=== PATIENT | male | born 1955 | race Caucasian/White ===

== ENCOUNTER 2025-04-02 12:46 | Emergency (ER) | payer OTHER, BC ==
[~2025-04-02] VITALS: Ht 177.8 cm; Wt 105.2 kg
[~2025-04-02 12:46] MED LIST: ACET-2006 PO; APIX5TAB3 PO; ASPI-1265 PO; ATOR-2 PO; CARB15DR58 EACHEYE; CYCL-394 PO; DULO30CA52 PO; EZET10TA6 PO; FERR-39 PO; HYDR-3972 PO; LISI5TAB22 PO; OMEP40CA21 PO; PREG50CA PO
[2025-04-02 13:10] VITALS: BP 137/80; PULSE 98; RESP 18; TEMP 97.3; O2SAT 98
[2025-04-02 13:35] LABS: MEAN PLATELET VOLUME 8.3 FL (7.4-10.4); RED CELL DISTRIBUTION WIDTH 17.6 % (11.5-14.5)
[2025-04-02 14:17] LABS: CREATININE 1.87 MG/DL (0.60-1.10); TOTAL CARBON DIOXIDE 29.7 MMOL/L (24-32); eCRCL 38 ML/MIN; eGFR 36 ML/MIN
== END 2025-04-02 19:02 | disposition left against medical advice (07) ==
LOC: ER 12:47
DX: K92.1 Melena (principal); Z53.21 Procedure and treatment not carried out due to patient leaving prior to being seen by health care provider
CPT/HCPCS: 36415; 80053; 85025; 99281